=== PATIENT | male | born 1980 | race Caucasian/White ===

== ENCOUNTER 2017-06-12 12:17 | Emergency (ER) | payer OTHER ==
--- NOTE | 2017-06-12 13:07 | ER NURSING DOCUMENTATION ---
Nurse's Notes Name:Mir Lilly Age:36 yrs Sex:Male :1980 Arrival Date:06/12/2017 Time:12:17 Bed1 Private MD: Diagnosis:Hand Laceration Presentation: 06/12 12:19 Acuity: KEMI 4 rh 12:26 Presenting complaint: Patient states: Pt lacerated left palm of hand with piece a rh metal. Transition of care: Home. Complicating Factors: There are no complicating factors for this patient. 12:26 Method Of Arrival: Private Vehicle Triage Assessment: 12:28 General: Appears in no apparent distress, Behavior is cooperative. Pain: Complains of rh pain in palm of left hand. Musculoskeletal: Circulation, motion, and sensation intact Range of motion intact in all extremities. Injury Description: Laceration sustained to palm of left hand is contaminated, 0.5 to 2.5 cm long, was sustained less than 30 minutes ago. is bleeding a small amount. Historical: - Allergies: No known drug Allergies; - Home Meds: 1. Warfarin Oral 2. Lisinopril Oral 3. carvedilol oral - PMHx: ATRIAL FIB; CARDIOMYOPATHY; - PSHx: SPLEENECTOMY; Cholecysectomy; - Tetanus: < 10 years. - Ebola Screening: : Patient negative for fever greater than or equal to 101.5 degrees Fahrenheit, and additional compatible Ebola Virus Disease symptoms. - Immunization history: Flu Vaccine < 1 year. - Social history: Smoking status: Patient states was never smoker of tobacco. Screenin:30 Infectious Disease Risk None. Abuse screen: Denies threats or abuse. Denies injuries rh from another. Nutritional screening: No deficits noted. Assessment: 12:30 See Triage Assessment done by same RN. rh Vital Signs: 12:29 BP 129 / 38; Pulse 88; Resp 17; Temp 98.0(TE); Pulse Ox 95% on R/A; Weight 90.72 kg; rh Height 6 ft. 0 in. (182.88 cm); Pain 4/10; 12:29 Body Mass Index 27.12 (90.72 kg, 182.88 cm) rh ED Course: 12:19 Patient arrived in ED. ds 12:19 Jenny Priest is Primary Nurse. rh 12:19 Triage completed. rh 12:30 Luis Hernandez MD is Attending Physician. teena 12:30 Notified ED Physician of patient's arrival and chief complaint. Dr. Hernandez notified. 12:30 Valuables Remains with patient Patient has correct armband on for positive rh identification. Call light in reach. 12:45 Wound care to laceration located on palm of left hand was cleaned with soap and water, rh Irrigation Normal Saline Patient tolerated well. 12:54 Assist Provider Assist provider with laceration repair on palm of left hand that was rh 2.5 cm. or less using sutures. Set up tray. Performed by Luis Hernandez MD Dressed with 4X4s, Kerlix, Patient tolerated well. Administered Medications: No medications were administered Outcome: 12:56 Discharge ordered by . teena 13:06 Discharged to home ambulatory. 13:06 Condition: improved 13:06 Discharge Assessment: Patient awake, alert and oriented x 3. No cognitive and/or functional deficits noted. Patient verbalized understanding of disposition instructions. 13:06 Discharge instructions given to patient, Instructed on discharge instructions, follow up and referral plans. Demonstrated understanding of instructions. 13:07 Patient left the ED. 06/13 11:44 Discharge F/U Call: Spoke with: patient. other: Name: pt is doing well. He has no st question or concerns. Signatures: Gely Pleitez, RN RN st ot, Lori, Devon Reg Luis King MD MD jm Hofsess, Rachel
--- NOTE | 2017-06-12 13:07 | ER PHYSICIAN DOCUMENTATION ---
Physician Documentation [facility] Name:Mir Lilly Age:36 yrs Sex:Male :1980 Arrival Date:06/12/2017 Time:12:17 Bed1 Private MD: Luis Carmen Disposition: 06/12/17 12:56 Discharged to Home/Self Care. Impression: Hand Laceration. - Condition is Good. - Discharge Instructions: LACERATION, Hand. - Medical Reconciliation form form. - Follow up: Private Physician; When: 10 days; Reason: Staple/Suture removal. - Problem is new. - Symptoms have improved. HPI: 06/12 13:13 This 36 yrs old Male presents to ER via Private Vehicle with complaints of jm Laceration To Hand - left. 13:13 The patient has a laceration related to: hit hand on a sharp part of a truck lift. The jm laceration(s) is(are) located on the palm of left hand. Onset: The symptom(s)/episode began/occurred just prior to arrival. Associated signs and symptoms: Pertinent negatives: heavy bleeding. The patient has not experienced similar symptoms in the past. Historical: - Allergies: No known drug Allergies; - Home Meds: 1. Warfarin Oral 2. Lisinopril Oral 3. carvedilol oral - PMHx: ATRIAL FIB; CARDIOMYOPATHY; - PSHx: SPLEENECTOMY; Cholecysectomy; - Tetanus: < 10 years. - Ebola Screening: : Patient negative for fever greater than or equal to 101.5 degrees Fahrenheit, and additional compatible Ebola Virus Disease symptoms. - Immunization history: Flu Vaccine < 1 year. - Social history: Smoking status: Patient states was never smoker of tobacco. ROS: 13:13 Constitutional: Negative for fatigue, fever. jm 13:13 Skin: Negative for laceration(s). 13:13 Neuro: Negative for numbness, tingling. 13:13 All other systems are negative. Exam: 13:13 Musculoskeletal/extremity: Extremities: grossly normal except: noted in the palm of jm left hand: laceration, Tendon exam: specific tendon testing normal through active and passive range of motion 13:13 Constitutional: The patient appears alert, awake. 13:13 Skin: injury, laceration(s), the wound is approximately 5 cm(s), with a depth of .5 cm(s), of the palm of left hand, no rash present. 13:13 Neuro: Mentation: is normal, Memory: is normal. Vital Signs: 12:29 BP 129 / 38; Pulse 88; Resp 17; Temp 98.0(TE); Pulse Ox 95% on R/A; Weight 90.72 kg; rh Height 6 ft. 0 in. (182.88 cm); Pain 4/10; 12:29 Body Mass Index 27.12 (90.72 kg, 182.88 cm) rh Laceration: 13:13 Wound Repair of 5cm ( 2.0in ) subcutaneous laceration to palm of left hand. Distal jm neuro/vascular/tendon intact. Anesthesia: Wound infiltrated with 10 mls of 1% lidocaine. Wound prep: Wound irrigation by nurse. Skin closed with 6 4-0 Ethilon using Interrupted sutures. Dressed with Kerlix. Patient tolerated well. MDM: 12:30 Patient medically screened. 13:13 Differential diagnosis: superficial laceration, tendon injury. Data reviewed: vital jm signs, nurses notes, and as a result, I will discharge patient. Counseling: I had a detailed discussion with the patient and/or guardian regarding: the historical points, exam findings, and any diagnostic results supporting the discharge/admit diagnosis, the need for outpatient follow up, with the patient's primary care provider. 06/12 12:30 Order name: Wound Care; Complete Time: 12:54 rh Dispensed Medications: No medications were administered Signatures: Luis Hernandez MD MD jm Hofsess, Rachel
== END 2017-06-12 13:07 | disposition home or self-care (01) ==
LOC: ER 12:17
DX: S61.412A Laceration without foreign body of left hand, initial encounter (principal); W26.8XXA Contact with other sharp object(s), not elsewhere classified, initial encounter; Y92.89 Other specified places as the place of occurrence of the external cause; Y93.H3 Activity, building and construction; Y99.0 Civilian activity done for income or pay
CPT/HCPCS: 12042; 99283